=== PATIENT | male | born 1950 ===

== ENCOUNTER 2016-09-01 11:03 | Emergency (ER) | payer BC ==
[2016-09-01] MEDS ORDERED: Bupivacaine 0.25% Inj(30mL) IJ ONE (11:21)
--- NOTE | 2016-09-01 11:30 | C.PDOC ---
History Of Present Illness A 66 year old male presents to the emergency room with left 3rd digit pain s/p a mechanical fall at 10:00 am today. 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 Patient notes a deformity and pain in the left 3rd digit. Patient reports some pain in the right shoulder. Patient denies any head trauma/LOC, sensory changes, weakness, numbness, or any other complaints. Chief Complaint (Nursing): Upper Extremity Problem/Injury History Per: Patient History/Exam Limitations: no limitations Onset/Duration Of Symptoms: Hrs (2) Current Symptoms Are (Timing): Still Present Quality: "Pain" Severity: Moderate Exacerbating Factor(s): Nothing Recent travel outside of the [place]: No Past Medical History Reviewed: Historical Data, Nursing Documentation, Vital Signs Vital Signs: Last Vital Signs Temp 98.2 F 09/01/16 12:38 Pulse 84 09/01/16 12:38 Resp 18 09/01/16 12:38 BP 138/72 09/01/16 12:38 Pulse Ox 98 09/01/16 12:38 Family History: States: No Known Family Hx Review Of Systems Except As Marked, All Systems Reviewed And Found Negative. Constitutional: Negative for: Fever, Chills Musculoskeletal: Positive for: Other (Left 3rd digit pain) Neurological: Negative for: Weakness, Numbness, Headache, Dizziness Physical Exam - Physical Exam Appears: Well, Non-toxic Skin: Normal Color, Warm, Dry, No Rash Head: Atraumatic, Normacephalic Extremity: Normal ROM (Full ROM of left wrist, elbow, and shoulder), Tenderness (Mild tenderness of right laterak shoulder), Capillary Refill (Less than 2 sec) , Deformity (Left 3rd digit is deformed at the PIP joint. Sensation normal.), No Swelling, Other (Superficial abrasions to bilateral shins. No bony tenderness.) Extremity: Bilateral: Normal Color And Temperature, Normal ROM Pulses: Left Radial: Normal, Right Radial: Normal, Left Dorsalis Pedis: Normal, Right Dorsalis Pedis: Normal Neurological/Psych: Oriented x3, Normal Speech, Normal Cognition, Normal Motor, Normal Sensation ED Course And Treatment - Other Rad Left 3rd digit X-ray/Right Shoulder X-ray X-Ray: Interpreted by Me, Viewed By Me Interpretation: Left 3rd digit X-ray impresison: As read by me; PIP dislocation at left 3rd digit. No apparent fracture. Right shoulder X-ray Impression: As read by me; No acute fracture or dislocation. Left 3rd digit X-ray Impression: As read by me; no acute fracture or dislocation. Successful reduction of 3rd PIP joint. Medical Decision Making Medical Decision Making: PROCEDURE: DIGITAL BLOCK Performed by the emergency provider Indication : Pain control Location: Left 3rd digit Preparation: The area was prepped and cleansed. Procedure: The appropriate site for a nerve block was identified. Nerve block was obtained with local infiltration of Marcaine 0.25%. Post-Procedure: The patient tolerated the procedure well, and there were no complications. PROCEDURE: REDUCTION Performed by the emergency provider Consent: Informed consent, after discussion of the risks, benefits, and alternatives to the procedure, was obtained. Timeout: A timeout to verify the correct patient, procedure, and site was performed immediately prior to the procedure. Indication: PIP dislocation Location: Left 3rd digit Pre-procedure neurovascular status: Distal neurovascular status intact. Post-procedure neurovascular status: Distal neurovascular status remains intact. Normal strength and sensation. Confirmation: Post-reduction films confirm reduction. X-ray impression: as read by me; no acute fracture or dislocation. Successful reduction of the 3rd PIP joint. Post-procedure: Patient tolerated the procedure well with no immediate complications. The reduction site was immobilized. Disposition - Disposition Referrals: [facility] [Outside] Clinic,Med Surg [Non-Staff] - Disposition: HOME/ ROUTINE Disposition Time: 12:21 Condition: GOOD Additional Instructions: Please follow up with your doctor for a re-check in 1 week. Use ice 20 min on and 20 min off for the rest of the day today. Use ibuprofen or naproxen for pain. Return to the ER for any worsening symptoms or for any other concerns. Instructions: Finger Dislocation (ED) Forms: Gen Discharge Inst [place]ian Print Language: MAURITIAN - Clinical Impression Clinical Impression: Closed traumatic PIP dislocation - Scribe Statement The provider has reviewed the documentation as recorded by the Scribloree Kinney All medical record entries made by the Scribe were at my direction and personally dictated by me. I have reviewed the chart and agree that the record accurately reflects my personal performance of the history, physical exam, medical decision making, and the department course for this patient. I have also personally directed, reviewed, and agree with the discharge instructions and disposition.
[2016-09-01 11:33] VITALS: BMI 27.4
[2016-09-01] MEDS ORDERED: Bacitracin 500 Units/gm Oint Foilpak UD ONE (12:30)
[2016-09-01 12:40] VITALS: BP 138/72; PULSE 84; RESP 18; TEMP 98.2; O2SAT 98
--- NOTE | 2016-09-01 14:01 | RAD ---
PROCEDURE: Left middle finger radiographs. HISTORY: Deformity COMPARISON: None. TECHNIQUE: AP radiograph of the left hand, as well as spot oblique and lateral images of left middle finger were obtained. FINDINGS: LEFT MIDDLE FINGER: There is dislocation at the 3rd proximal interphalangeal joint. The middle phalanx is dislocated dorsally and towards the ulnar aspect. There is no evidence of fracture. There is no fracture seen elsewhere. Remainder of the left hand (as seen on the AP view) is grossly unremarkable. JOINTS: Dislocation 3rd PIP as above. Remaining visualized joints are unremarkable. SOFT TISSUES: Normal. OTHER FINDINGS: None. IMPRESSION: Dislocation 3rd PIP articulation.
--- NOTE | 2016-09-01 14:03 | RAD ---
PROCEDURE: Left middle finger radiographs. HISTORY: post reduction film COMPARISON: None. TECHNIQUE: AP radiograph of the left hand, as well as spot oblique and lateral images of left middle finger were obtained. FINDINGS: LEFT MIDDLE FINGER: Status post successful close reduction 3rd PIP joint. Normal articulation mass seen. No fracture identified. Remainder of the left hand (as seen on the AP view) is grossly unremarkable. JOINTS: Normal. SOFT TISSUES: Normal. OTHER FINDINGS: None. IMPRESSION: Close reduction 3rd PIP dislocation. No fracture identified.
--- NOTE | 2016-09-01 14:04 | RAD ---
PROCEDURE: Radiographs of the Right Shoulder HISTORY: fall pain COMPARISON: No prior. FINDINGS: BONES: Normal. No fracture. JOINTS: No dislocation. Normal glenohumeral articulation. Mild acromioclavicular degenerative arthritis. SOFT TISSUES: Normal. OTHER FINDINGS: None. IMPRESSION: Mild acromioclavicular degenerative arthritis. Otherwise unremarkable.
== END 2016-09-01 12:45 | disposition home or self-care (01) ==
LOC: C.ER 11:03
DX: S63.283A Dislocation of proximal interphalangeal joint of left middle finger, initial encounter (principal); W01.0XXA Fall on same level from slipping, tripping and stumbling without subsequent striking against object, initial encounter; Y93.89 Activity, other specified; Y92.89 Other specified places as the place of occurrence of the external cause